=== PATIENT | female | born 1950 | race Caucasian/White ===

== ENCOUNTER 2017-09-13 13:19 | Emergency (ER) | payer MEDICARE, SELFPAY ==
[2017-09-13 13:20] VITALS: BP 192/109; PULSE 62; RESP 16; TEMP 36.8; O2SAT 100; BMI 24.2; BMI 242080.4
--- NOTE | 2017-09-13 13:22 | XR_ITS ---
XR chest 2V HISTORY: ITS.REASON: CHEST PAIN ORDERING PHYSICIAN: Jose Angel Cuevas MD PATIENT AGE: 67 years COMPARISON: None available FINDINGS: The cardiomediastinal silhouette and pulmonary vascularity are within normal limits. The lungs are clear without infiltrates, suspicious nodules, or pleural effusions. There are degenerative changes in the thoracic spine with endplate osteophytes. A nodular opacity overlies the inferior aspect of the T6 vertebral body and may be due to an overlying osteophyte. No acute bony abnormalities. IMPRESSION: No acute finding. Spondylosis of the thoracic spine
[2017-09-13 13:29] VITALS: BMI 242080.4
--- NOTE | 2017-09-13 13:59 | HMH.EDCP ---
ED Disposition Clinical Impression: Neck pain Chest pain Qualifiers: Chest pain type: other chest pain Qualified Code(s): R07.89 - Other chest pain Disposition: Home, Self-Care Condition on Discharge: Good Additional Instructions: Please continue the current blood pressure medication, atenolol, and add HCTZ 12.5mg each morning. Keep a log with blood pressure readings checked at rest, follow-up with Dr. Ryley Harris on Wednesday as already scheduled. Prescriptions: hydroCHLOROthiazide [HCTZ 12.5mg cap] 12.5 mg PO DAILY #30 cap Referrals: Ryley Harris [Referring] - Gonsalo Agosto [Referring] - Time of Disposition: 17:10 - Critical Care Critical Care Time: No Attestation: On , the high probability of a clinically significant, sudden or life threatening deterioration of the following system(s) required my full and direct attention, intervention and personal management. The time I documented below is in addition to time spent performing reported procedures but includes the following listed in this critical care notation. Medical Decision Making - Medical Records Medical records reviewed: Yes: I reviewed the patient's medical records. Vital Signs: 09/13/17 13:20 09/13/17 14:20 09/13/17 15:40 Temperature 98.3 F Temperature Source Oral Pulse Rate Pulse Rate [Right Radial] 62 Respiratory Rate 16 Blood Pressure Blood Pressure [Right Arm] 192/109 154/100 132/68 Blood Pressure Mean [Right Arm] 136 118 89 Blood Pressure Source [Right Arm] Automatic Cuff Blood Pressure Position [Right Arm] Sitting 02 Sat by Pulse Oximetry 100 Oxygen Delivery Method Room Air 09/13/17 17:20 Temperature 98.3 F Temperature Source Oral Pulse Rate 78 Pulse Rate [Right Radial] Respiratory Rate 16 Blood Pressure 146/78 Blood Pressure [Right Arm] Blood Pressure Mean [Right Arm] Blood Pressure Source [Right Arm] Blood Pressure Position [Right Arm] 02 Sat by Pulse Oximetry Oxygen Delivery Method Room Air - Lab Data Lab results reviewed: Yes: I reviewed the patient's lab results. Lab Results 09/13/17 13:25: WBC 7.5, RBC 4.38, Hgb 13.7, Hct 42.4, MCV 96.7, MCH 31.2, MCHC 32.3, RDW 12.1, Plt Count 389, MPV 7.1 L, Neut % (Auto) 60.5, Lymph % (Auto) 29.6, [place] % (Auto) 5.3, Eos % (Auto) 4.1, Baso % (Auto) 0.5, Neut # (Auto) 4.6, Lymph # (Auto) 2.2, [place] # (Auto) 0.4, Eos # (Auto) 0.3, Baso # (Auto) 0.0 09/13/17 13:25: Sodium 133 L, Potassium 3.7, Chloride 100, Carbon Dioxide 27, Anion Gap 9.7, BUN 16, Creatinine 0.92, Estimated Creat Clear 58, Estimated GFR 61, Est GFR ( Amer) 73, Glucose 100, Calcium 8.5, Total Bilirubin 0.4, AST 15, ALT 26, Alkaline Phosphatase 77, Total Creatine Kinase 46, CK-MB (CK-2) < 0.5, CK-MB (CK-2) Rel Index 1.1, Troponin I < 0.02, Total Protein 8.2, Albumin 3.9, Globulin 4.3 H, Albumin/Globulin Ratio 0.9 L 09/13/17 13:25: D-Dimer 114 09/13/17 15:55: Total Creatine Kinase 43, CK-MB (CK-2) < 0.5, CK-MB (CK-2) Rel Index 1.2, Troponin I < 0.02 Result diagrams: 09/13/17 13:25 09/13/17 13:25 Orders (Tests/Meds): ED MEDICATIONS Discontinued Medications Generic Name Dose Route Start Last Admin Trade Name Albinoq PRN Reason Stop Dose Admin Clonidine HCl 0.2 mg 09/13/17 13:25 09/13/17 13:33 Clonidine 0.2mg Tablet PO 09/13/17 13:26 0.2 mg ONCE ONE Administration Clonidine HCl 0.1 mg 09/13/17 15:00 09/13/17 15:10 Clonidine 0.1mg Tablet PO 09/13/17 15:01 Not Given ONCE ONE ORDERS Category Date Time Status Trop I [Troponin I] Stat Lab 09/13/17 15:43 Ordered - Radiology Data #1 Image(s): Chest Image Reviewed: Yes I reviewed the patient's radiology image Preliminary Findings: Normal/NAD - ECG Data Tracing #1 I reviewed this ECG and interpreted as documented below: ECG normal with no acute: arrhythmias, ischemia, conduction abnormalities, chamber hypertrophy Normal Sinus Rhythm: Yes - Venkatesh Inquiry Pt receiving
[2017-09-13 14:20] VITALS: BP 154/100
[2017-09-13 14:23] LABS: Basophils % 0.5 % (0.1-2.0); Eosinophils # 0.3 K/mm3 (0.0-0.4); Eosinophils % 4.1 % (0.1-12.0); Hematocrit 42.4 % (37.0-47.0); Hemoglobin 13.7 g/dL (12.2-16.2); Lymphocytes # 2.2 K/mm3 (0.7-4.5); Lymphocytes % 29.6 K/mm3 (10-50); Mean Corpuscular HGB Conc 32.3 g/dL (31.8-35.4); Mean Corpuscular Hemoglobin 31.2 pg (27.0-31.2); Mean Corpuscular Volume 96.7 fl (81-99); Mean Platelet Volume 7.1 fl (7.4-10.4); Monocytes # 0.4 K/mm3 (0.1-1.0); Monocytes % 5.3 % (1.7-9.3); Neutrophils # 4.6 K/mm3 (1.8-7.8); Neutrophils % 60.5 % (37.0-80.0); Platelet Count 389 K/mm3 (142-424); Red Blood Count 4.38 M/mm3 (4.20-5.40); Red Cell Distribution Width 12.1 % (11.5-17.5); White Blood Count 7.5 K/mm3 (4.8-10.8)
[2017-09-13 15:32] LABS: Alanine Aminotransferase 26 U/L (12-78); Albumin Level 3.9 gm/dL (3.4-5.0); Albumin/Globulin Ratio 0.9 (1.1-1.8); Alkaline Phosphatase 77 U/L (46-116); Anion Gap 9.7 mEq/L (5-15); Aspartate Amino Transferase 15 U/L (15-37); Bilirubin,Total 0.4 mg/dL (0.2-1.0); Blood Urea Nitrogen 16 mg/dL (7-18); CKMB Relative Index 1.1 U/L (0-4.0); Calcium 8.5 mg/dL (8.5-10.1); Carbon Dioxide 27 mmol/L (21.0-32.0); Chloride 100 mmol/L (98-107); Creatine Kinase 46 U/L (26-192); Creatine Kinase MB < 0.5 mg/ml (0.0-3.6); Creatinine Clearance Estimated 58 mL/min (0-300); Creatinine,Serum 0.92 mg/dL (0.55-1.02); Estimated Glomerular Filt Rate 61 ml/min (>60); GFR (African American) 73 ML/MIN (>60); Globulin 4.3 gm/dl (1.3-3.2); Glucose 100 mg/dL (74-106); Potassium 3.7 mmoL/L (3.5-5.1); Sodium 133 mmol/L (136-145); Total Protein,Serum 8.2 gm/dL (6.4-8.2); Troponin I < 0.02 ng/ml (0.00-0.06)
[2017-09-13 15:40] VITALS: BP 132/68
--- NOTE | 2017-09-13 15:40 | PC.NURSE ---
LopezRN informed me at approx. 1530 they had sent labs up on this patient at approx. 1330 and they still had no results. She advised she had called and they informed her that there was still 4minutes left and it had been prolonged due to a miscommunication in the lab. I called lab and spoke with Graciela she advised me that there had been a miscommunication between some people and that the blood had laid there for a little while before anyone realized it and they were running it now and it had approx. 4 mins left.
[2017-09-13 16:18] LABS: D-Dimer 114 (0-400)
[2017-09-13 16:19] LABS: Creatine Kinase 43 U/L (26-192); Troponin I < 0.02 ng/ml (0.00-0.06)
[2017-09-13 16:21] LABS: CKMB Relative Index 1.2 U/L (0-4.0); Creatine Kinase MB < 0.5 mg/ml (0.0-3.6)
[2017-09-13 17:20] VITALS: BP 146/78; PULSE 78; RESP 16; TEMP 36.8; O2SAT 96
== END 2017-09-13 17:20 | disposition home or self-care (01) ==
PROVIDERS: Emergency Provider Emergency Medicine
DX: R07.89 Other chest pain (principal); M54.2 Cervicalgia
CPT/HCPCS: 36415; 71046; 80053; 82550; 82553; 84484; 85025; 85378; 93005; 99283

== ENCOUNTER → 2019-08-10 07:51 | Outpatient (CLI) | payer MEDICARE, SELFPAY ==
--- NOTE | 2019-08-10 07:56 | CA_ITS ---
APPROVED REPORT Concrete Wall Grinder Operator: Cecilia Luong RVT Study Quality: Good Indications: Uncontrolled HTN Risk Factors Hypertension Renal Artery Doppler Origin (R) 105.1/ cm/sec Proximal (R) 78.9/ cm/sec Mid (R) 96.0/ cm/sec Distal (R) 41.9/ cm/sec Renal Aorta Ratio (R) 1.13 Segmental A. (R) 41.9/9.0 cm/sec RI: 0.78 Segmental A. Sup (R) 41.9/9.0 cm/sec Segmental A. Mid (R) 36.2/12.4 cm/sec Segmental A. Inf (R) 38.1/9.5 cm/sec Origin (L) 102.7/ cm/sec Proximal (L) 81.2/ cm/sec Mid (L) 59.9/ cm/sec Distal (L) 49.1/ cm/sec Renal Aorta Ratio (L) 1.10 Segmental A. (L) 51.8/14.0 cm/sec RI: 0.72 Segmental A. Sup (L) 33.4/9.4 cm/sec Segmental A. Mid (L) 51.8/14.0 cm/sec Segmental A. Inf (L) 33.2/7.0 cm/sec Renal Measurements Kidney Size (R) 11.6x7.3 cm Cortical Thickness (R) 1.6 cm Kidney Size (L) 12.8x5.2 cm Cortical Thickness (L) 1.2 cm Conclusion Study suggests no evidence of renal artery stenosis. Electronically signed by : Devonte De Leon MD 08/11/2019 17:28:21
== END ==
PROVIDERS: Visit Provider Nurse Practitioner
DX: I10 Essential (primary) hypertension (principal)
CPT/HCPCS: 93976

== ENCOUNTER 2021-06-30 20:27 | Emergency (ER) | payer MEDICARE, SELFPAY ==
[2021-06-30 20:40] VITALS: BP 153/90; PULSE 73; RESP 18; TEMP 36.8; O2SAT 97; BMI 25.8
--- NOTE | 2021-06-30 21:16 | HMH.EDUTC ---
[facility] [place] Disposition Clinical Impression: Laceration Disposition: Home, Self-Care Condition on Discharge: Good Instructions: How to Care for a Laceration After Repair, DI for Laceration Repair Additional Instructions: Suture instructions: You have required stitches today. Please read the following instructions so you know how to care for them: 1. Keep wound area dry for the first 24 hours. 2 May clean gently with mild soap and water, after 48 hours to prevent crusting over suture knots. 3. You may shower if your provider gives permission but do not take a bath until the skin is healed.. 4. Never leave a wet dressing or Band-Aid on your stitches as this allows bacteria to reach the area and may cause infection. Band-aids can cause the wound to sweat and not recommended to wear for long periods of time Watch for signs of infection: Increasing redness, tenderness or warmth around the suture site Unusual swelling around the site Appearance of pus around each suture or any red streaks Fever If you develop any of the above signs or symptoms of infection, Follow up with Family Physician immediately 5. Suture removal in _-12___days 6. Return to [facility] or follow up with family doctor for removal. This can be done by any medical provider during regular hours on Wednesday through Wednesday, by appointment. Referrals: Dasia Acosta APRN [Primary Care Provider] - As needed Time of Disposition: 21:59 Medical Decision Making - Venkatesh Inquiry Pt receiving controlled substance: No Venkatesh was queried for this patient: No Vital Signs: 06/30/21 20:40 06/30/21 21:52 Temperature 98.3 F 98.3 F Temperature Source Oral Pulse Rate 73 Pulse Rate [Right Brachial] 73 Respiratory Rate 18 18 Blood Pressure 153/90 H Blood Pressure [Right Arm] 153/90 H Blood Pressure Mean [Right Arm] 111 Blood Pressure Source [Right Arm] Automatic Cuff Blood Pressure Position [Right Arm] Sitting 02 Sat by Pulse Oximetry 97 Oxygen Delivery Method Room Air [facility] [place] HPI - General Stated complaint: [id number] Left thumb lac Time Seen by Provider: 06/30/21 21:16 Mode of Arrival: Ambulatory Source of Information: Patient Limitations: No Limitations Description of Symptoms (Recalled from Triage Doc. by RN): PATIENT REPORTS SHE CUT HER LEFT THUMB WITH NEW KNIFE WHILE MAKING A SALAD THIS EVENING. SHE IS NOT UP TO DATE ON TDAP, HOWEVER REFUSES IT AT THIS TIME HEENT Symptoms (Recalled from RN notes): No Resp Symptoms (Recalled from RN notes): No Skin Symptoms (Recalled from RN notes): Yes MS Symptoms (Recalled from RN notes): No Functional Status (Recalled from RN notes): WNL - History of Present Illness Provider Complaint: Patient states that she accidently cut her thumb as she was cutting up some salad States that she noticed it looked like it may take a coulpe of stitches so she came in to get it checked States that she would rather glue if we could - Related Data Home Medications Medication Instructions Recorded Confirmed Cholecalciferol (Vitamin D3) 2,000 unit PO DAILY 08/23/18 06/11/21 [Vitamin D3] Multivitamin [Multivitamins] 1 each PO DAILY 08/23/18 06/11/21 Sennosides/Docusate Sodium [Stool 1 each PO DAILY 08/23/18 06/11/21 Softener-Laxative Tablet] Thyroid,Pork [[place] Thyroid] 60 mg PO DAILY 08/23/18 06/11/21 atenolol 25 mg tablet 25 mg PO DAILY 06/11/21 06/11/21 losartan 100 mg tablet 100 mg PO DAILY 06/11/21 06/11/21 Previous Rx's Medication Instructions Recorded amoxicillin 500 mg capsule 500 mg PO Q12H 10 Days #20 cap 06/11/21 benzonatate 200 mg capsule 200 mg PO TID PRN 7 Days #21 cap 06/11/21 Allergies Allergy/AdvReac Type Severity Reaction Status Date / Time No Known Allergies Allergy Verified 06/11/21 15:27 - Worker's Comp Is this a Worker's Comp case?: No [facility] History - Hepatitis A Screen Drug use history?: No High risk sexual behaviors?: No History of sexually transmitted infection?: No Currently
[2021-06-30 21:52] VITALS: BP 153/90; PULSE 73; RESP 18; TEMP 36.8; O2SAT 97
== END 2021-06-30 22:11 | disposition home or self-care (01) ==
PROVIDERS: Emergency Provider Nurse Practitioner; PCP Nurse Practitioner Family
DX: S61.012A Laceration without foreign body of left thumb without damage to nail, initial encounter (principal); E78.5 Hyperlipidemia, unspecified; I10 Essential (primary) hypertension; W26.0XXA Contact with knife, initial encounter; Y92.010 Kitchen of single-family (private) house as the place of occurrence of the external cause
CPT/HCPCS: 12001; G0463; 99202

== ENCOUNTER 2022-03-02 21:40 | Emergency (ER) | payer MEDICARE, SELFPAY ==
--- NOTE | 2022-03-02 21:45 | ECG_ITS ---
APPROVED REPORT Exam: Resting ECG HR:75 bpm ECG Measurements Heart Rate 75 AXES MS 204 P 71 QRSd 103 QRS -41 QT 395 T 66 QTc 423 Conclusion SINUS RHYTHM LEFT AXIS DEVIATION [QRS AXIS < -30] ABNORMAL ECG UNCONFIRMED REPORT Electronically signed by : Jimmy Guo MD 03/03/2022 21:23:53
[2022-03-02 21:57] VITALS: BP 194/107; PULSE 76; RESP 18; TEMP 36.7; O2SAT 98; BMI 26.6
--- NOTE | 2022-03-02 22:06 | XR_ITS ---
PROCEDURE INFORMATION: Exam: XR Chest Exam date and time: 03/02/2022 10:06 PM Age: 71 years old Clinical indication: Sternal or substernal pain; Additional info: Chest pain TECHNIQUE: Imaging protocol: Radiologic exam of the chest. Views: 2 views. COMPARISON: CR CXR2V XR chest 2V 09/13/2017 2:07 PM FINDINGS: Lungs: Unremarkable. No consolidation. Pleural spaces: Unremarkable. No pleural effusion. No pneumothorax. Heart/Mediastinum: Unremarkable. No cardiomegaly. Vasculature: Vascular calcifications. Bones/joints: Unremarkable. IMPRESSION: No acute findings.
--- NOTE | 2022-03-02 22:07 | CT_ITS ---
PROCEDURE INFORMATION: Exam: CT Head Without Contrast Exam date and time: 03/02/2022 10:13 PM Age: 71 years old Clinical indication: Pain; Headache; Additional info: Severe headache TECHNIQUE: Imaging protocol: Computed tomography of the head without contrast. Radiation optimization: All CT scans at this facility use at least one of these dose optimization techniques: automated exposure control; mA and/or kV adjustment per patient size (includes targeted exams where dose is matched to clinical indication); or iterative reconstruction. COMPARISON: No relevant prior studies available. FINDINGS: Brain: Bilateral basal ganglia calcifications. Mild chronic brain volume loss and chronic small vessel ischemic changes. Cerebral ventricles: No ventriculomegaly. Paranasal sinuses: Visualized sinuses are unremarkable. No fluid levels. Mastoid air cells: Visualized mastoid air cells are well aerated. Bones/joints: Unremarkable. No acute fracture. Soft tissues: Small lipoma overlying the left frontal bone. Mild bilateral facial soft tissue edema. IMPRESSION: No acute intracranial findings.
[2022-03-02 22:16] LABS: Basophils # 0.1 K/mm3 (0-0.2); Basophils % 1.6 % (0.1-2.0); Eosinophils # 0.3 K/mm3 (0.0-0.4); Eosinophils % 4.3 % (0.1-12.0); Hematocrit 43.2 % (37.0-47.0); Hemoglobin 13.3 g/dL (12.2-16.2); Lymphocytes # 2.7 K/mm3 (0.7-4.5); Lymphocytes % 34.1 % (10-50); Mean Corpuscular HGB Conc 30.9 g/dL (31.8-35.4); Mean Corpuscular Hemoglobin 31.5 pg (27.0-31.2); Mean Corpuscular Volume 102.1 fl (81-99); Mean Platelet Volume 7.2 fl (7.4-10.4); Monocytes # 0.4 K/mm3 (0.1-1.0); Monocytes % 5.1 % (1.7-9.3); Neutrophils # 4.3 K/mm3 (1.8-7.8); Neutrophils % 54.8 % (37.0-80.0); Platelet Count 448 K/mm3 (142-424); Red Blood Count 4.23 M/mm3 (4.20-5.40); Red Cell Distribution Width 13.4 % (11.5-17.5); White Blood Count 7.8 K/mm3 (4.8-10.8)
[2022-03-02 22:22] LABS: Anion Gap 12.6 mEq/L (5-15); Blood Urea Nitrogen 16 mg/dl (7-17); Carbon Dioxide 25 mmol/L (22.0-30.0); Chloride 102 mmol/L (98-107); Creatinine Clearance Estimated 60 mL/min (50-200); Estimated Glomerular Filt Rate 71 ml/min (>60); GFR (African American) 85 ML/MIN (>60); Glucose 102 mg/dl (74-100); Magnesium 1.9 mg/dl (1.6-2.3); Potassium 3.6 mmoL/L (3.5-5.1); Sodium 136 mmol/L (136-145)
--- NOTE | 2022-03-02 22:22 | PC.NURSE ---
Pt back from RAD
[2022-03-02 22:38] LABS: Troponin I < 0.01 ng/ml (0.00-0.034)
[2022-03-02 22:40] LABS: Erythrocyte Sedimentation Rate 18 mm/hr (0-30)
[2022-03-02 22:43] LABS: T4 (Thyroxine) 7.3 ug/dl (5.53-11.0)
--- NOTE | 2022-03-02 22:45 | PC.NURSE ---
Pt given pillow and light turned off per request. NO other needs or complaints at this time.
[2022-03-02 22:52] LABS: Procalcitonin < 0.030 ng/mL (0.0-2.0)
[2022-03-02 22:57] LABS: Thyroid Stimulating Hormone 4.32 uIU/mL (0.465-4.68)
[2022-03-02 23:00] VITALS: BP 173/96; PULSE 67; RESP 11; O2SAT 98
[2022-03-02 23:12] LABS: Microscopic, Urine URINE MICROSCOPIC (MICROSCOPIC)
[2022-03-02 23:13] LABS: Appearance,Urine CLEAR (Clear); Bilirubin,Urine Negative (Negative); Blood, Urine Negative (Negative); Color,Urine YELLOW (Yellow); Glucose,Urine (UA) Negative (Negative); Ketones,Urine TRACE (Negative); Leukocyte Esterase,Urine 1+ (Negative); Nitrate,Urine Negative (Negative); PH,Urine 6.5 (5.0-8.5); Protein,Urine Negative (Negative); Urobilinogen,Urine 0.2 EU/dl (0.2)
[2022-03-02 23:29] LABS: Transitional Epi Cells,Urine OCC #/lpf (0-3)
--- NOTE | 2022-03-02 23:53 | PC.NURSE ---
Updated patient on her results so far and her plan of care.
--- NOTE | 2022-03-03 00:30 | HMH.EDCP ---
ED Disposition Clinical Impression: Hypertensive crisis Chest pain Qualifiers: Chest pain type: precordial pain Qualified Code(s): R07.2 - Precordial pain Disposition: Home, Self-Care Condition on Discharge: Good Instructions: DI for Chest Pain Additional Instructions: see card this am Referrals: Provider,Referral, [Primary Care Provider] - - Critical Care Critical Care Time: No Attestation: On 03/02/22, the high probability of a clinically significant, sudden or life threatening deterioration of the following system(s) required my full and direct attention, intervention and personal management. The time I documented below is in addition to time spent performing reported procedures but includes the following listed in this critical care notation. Medical Decision Making - Medical Records Medical records reviewed: Yes: I reviewed the patient's medical records. - Venkatesh Inquiry Pt receiving controlled substance: No Vital Signs: 03/02/22 21:57 03/02/22 23:00 03/03/22 01:00 Temperature 98.1 F 98.0 F Temperature Source Oral Pulse Rate 67 87 Pulse Rate [Apical] 76 Respiratory Rate 18 11 L 18 Blood Pressure 173/96 H 159/88 H Blood Pressure [Right Arm] 194/107 H Blood Pressure Mean [Right Arm] 136 Blood Pressure Source Blood Pressure Source [Right Arm] Automatic Cuff Blood Pressure Position Blood Pressure Position [Right Arm] Sitting 02 Sat by Pulse Oximetry 98 98 Oxygen Delivery Method Room Air Room Air Room Air 03/03/22 01:05 Temperature 98 F Temperature Source Oral Pulse Rate 80 Pulse Rate [Apical] Respiratory Rate 18 Blood Pressure 159/86 H Blood Pressure [Right Arm] Blood Pressure Mean [Right Arm] Blood Pressure Source Automatic Cuff Blood Pressure Source [Right Arm] Blood Pressure Position Sitting Blood Pressure Position [Right Arm] 02 Sat by Pulse Oximetry Oxygen Delivery Method Room Air - Lab Data Lab results reviewed: Yes: I reviewed the patient's lab results. Lab Results 03/02/22 21:51: WBC 7.8, RBC 4.23, Hgb 13.3, Hct 43.2, MCV 102.1 H, MCH 31.5 H, MCHC 30.9 L, RDW 13.4, Plt Count 448 H, MPV 7.2 L, Neut % (Auto) 54.8, Lymph % (Auto) 34.1, [place] % (Auto) 5.1, Eos % (Auto) 4.3, Baso % (Auto) 1.6, Neut # (Auto) 4.3, Lymph # (Auto) 2.7, [place] # (Auto) 0.4, Eos # (Auto) 0.3, Baso # (Auto) 0.1, ESR 18 03/02/22 21:51: Sodium 136, Potassium 3.6, Chloride 102, Carbon Dioxide 25, Anion Gap 12.6, BUN 16, Creatinine 0.80, Estimated Creat Clear 60, Estimated GFR 71, Est GFR ( Amer) 85, Glucose 102 H, Calcium 9.0, Magnesium 1.9, Troponin I < 0.01, C-Reactive Protein 1.0 03/02/22 21:51: Procalcitonin < 0.030 03/02/22 21:52: TSH 4.32, Thyroxine (T4) 7.3 03/02/22 22:08: Urine Color Yellow, Urine Appearance Clear, Urine pH 6.5, Ur Specific Kellogg 1.010, Urine Protein Negative, Urine Glucose (UA) Negative, Urine Ketones Trace, Urine Blood Negative, Urine Nitrate Negative, Urine Bilirubin Negative, Urine Urobilinogen 0.2, Ur Leukocyte Esterase 1+ A, Urine RBC None, Urine WBC 5-10, Ur Squamous Epith Cells 3-5, Ur Transition Epith Cell Occ, Urine Bacteria None 03/03/22 00:13: Troponin I < 0.01 Result diagrams: 03/02/22 21:51 03/02/22 21:51 Orders (Tests/Meds): ED MEDICATIONS Discontinued Medications Generic Name Dose Route Start Last Admin Trade Name Angie PRN Reason Stop Dose Admin Aspirin 324 mg 03/02/22 22:07 03/02/22 22:11 Aspirin 81mg Chewable Tablet PO 03/02/22 22:08 324 mg ONCE ONE Administration Sodium Chloride 1,000 mls @ 999 mls/hr 03/02/22 22:15 03/02/22 22:10 Sod Chlor 0.9% 1000ml Bag IV 03/02/22 23:15 999 mls/hr .Q1H1M DOONVAN Administration Ceftriaxone Sodium 1 gm/ 50 mls @ 100 mls/hr 03/02/22 23:45 03/02/22 23:53 Sodium Chloride IV 03/16/22 23:44 100 mls/hr Q24H DONOVAN Administration Nitroglycerin 0.4 mg 03/02/22 22:07 03/02/22 22:11 Nitroglycerin 0.4mg Sl Tablet SL 03/02/22 22:08 0.4 mg ONCE ONE Ad
[2022-03-03 00:59] LABS: Troponin I < 0.01 ng/ml (0.00-0.034)
[2022-03-03 01:00] VITALS: BP 159/88; PULSE 87; RESP 18; TEMP 36.7; O2SAT 98
[2022-03-03 01:05] VITALS: BP 159/86; PULSE 80; RESP 18; TEMP 36.6; O2SAT 99
== END 2022-03-03 01:27 | disposition home or self-care (01) ==
PROVIDERS: Emergency Provider Emergency Medicine
DX: R07.2 Precordial pain (principal); R51.9 Headache, unspecified; I10 Essential (primary) hypertension; E78.5 Hyperlipidemia, unspecified; J98.4 Other disorders of lung; Z79.899 Other long term (current) drug therapy; Z82.49 Family history of ischemic heart disease and other diseases of the circulatory system
CPT/HCPCS: 70450; 71046; 80048; 81001; 83735; 84145; 84436; 84443; 84484; 85025; 85651; 86140; 87086; 93005; 96360; 96361; 99285; J0696